=== PATIENT | male | born 1940 | race Caucasian/White ===

== ENCOUNTER 2020-11-22 08:00 | Outpatient (CLI) | payer OTHER ==
[~2020-11-22 08:00] MED LIST: BUTALB-ASPIRIN1 EACH PO; CENTRUM ADULTS1 EACH; CYCLOBENZAPRINE10 MG PO; DICLOFENAC POTA50 MG PO; DICLOFENAC SODI75 MG PO; LANTUS SOL100 UNIT/1 SQ; NIFEDIPINE20 MG PO; PROAIR HFA8.5 GM; VASOTEC20 M1 PO
== END 2020-11-22 08:30 | disposition home or self-care (01) ==
LOC: PPH VACUNA 08:00
PROVIDERS: ATTEND Emergency Medicine Pediatric Emergency Medicine
DX: Z23 Encounter for immunization (principal)